=== PATIENT | male | born 1975 | race Caucasian/White ===

== ENCOUNTER → 2021-12-11 | Outpatient (CLI) | payer OTHER ==
--- NOTE | 2021-12-12 08:58 | KCIC ---
EXAMINATION: MRI RIGHT THIGH WITHOUT IV CONTRAST AND MRI RIGHT KNEE WITHOUT IV CONTRAST CLINICAL HISTORY: Crush injury to right distal thigh/knee. 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 TECHNIQUE: Multiplanar multisequential images obtained through the right thigh and right knee without intravenous contrast. COMPARISON: None FINDINGS: MENISCI: Medial Meniscus: Intact Lateral Meniscus: Intact LIGAMENTS: ACL: Complete tear PCL: Complete tear strongly suspected near the femoral attachment MCL: Complete tear proximally LCL Complex: Intact CARTILAGE: Medial Femoral Condyle: Normal Medial Tibial Plateau: Normal Lateral Femoral Condyle: Normal Lateral Tibial Plateau: Small areas(s) of predominantly high grade (greater than 50% thickness) carti lisandro loss and or fissuring with smaller area(s) of full thickness cartilage loss and or fissuring Patella: Single full-thickness fissure with subchondral marrow reactive/cystic changes in the lateral facet Trochlea: Small area(s) of full thickness cartilage loss and or fissuring with subchondral marrow renea ctive/cystic changes predominantly in the inferior medial trochlea BONES AND MARROW: Mild marrow edema in the anterior lateral and posterior femoral condyles and in the anterior lateral tibial plateau involving the lateral tibial spine, compatible with bone contusions. No acute fracture definitively visualized on limited evaluation. MUSCLES AND TENDONS: Full-thickness tear through the anterior sartorius muscle at the level of the distal femoral metaphys is measuring up to 4.5 cm in craniocaudal length. Surrounding fluid collection measuring approximatel y 3.9 x 4.3 x 5.9 cm (AP x TRV x CC) dissects through the muscular defect, likely hematoma. The saphe nous nerve appears to be displaced anteriorly at the proximal margin of the collection and is poorly visualized distal to the supracondylar femur. The greater saphenous vein is intact and courses throug h a portion of the collection. Femoral and popliteal arteries and veins and sciatic nerve intact. Moderate subcutaneous and perifascial edema throughout the mid to distal thigh and knee. [id number] rate edema in the posterolateral vastus intermedius muscle within the mid to distal thigh and mild ed marivel in the anteromedial short head biceps femoris muscle and anterior semimembranosus muscles within the mid to distal thigh and within the distal abductor yury muscle. This may be reactive changes ar e related to low-grade muscle strain. Tendons intact. JOINT FLUID AND SYNOVIUM: Moderate joint effusion with synovitis. IMPRESSION: Complete tear of the anterior cruciate and medial collateral ligaments. Complete tear of the posterio r cruciate ligament also strongly suspected. 4.5 cm full-thickness tear through the distal sartorius muscle with probable surrounding hematoma and possible associated injury to the saphenous nerve as described. No discrete meniscus tear. Multifocal bone contusions without definite fracture, correlate with comparison radiographs if availa ble. Mild full-thickness chondral wear in the patellofemoral compartment and lateral tibial plateau. Electronically signed by: Rickie Worthington DO (12/12/2021 8:56 AM) [id number]
== END ==
LOC: KCIC MRI 14:28
PROVIDERS: ATTEND Internal Medicine
DX: S83.511A Sprain of anterior cruciate ligament of right knee, initial encounter (principal); S83.411A Sprain of medial collateral ligament of right knee, initial encounter; S86.811A Strain of other muscle(s) and tendon(s) at lower leg level, right leg, initial encounter; S80.01XA Contusion of right knee, initial encounter; S77.11XD Crushing injury of right thigh, subsequent encounter; M25.461 Effusion, right knee; M25.361 Other instability, right knee; M25.561 Pain in right knee; M65.861 Other synovitis and tenosynovitis, right lower leg; M79.89 Other specified soft tissue disorders; Y93.I9 Activity, other involving external motion; Y93.89 Activity, other specified; Y92.89 Other specified places as the place of occurrence of the external cause; Y99.8 Other external cause status
CPT/HCPCS: 73718; 73721